=== PATIENT | male | born 1960 | race African-American/Black ===

== ENCOUNTER 2016-12-04 06:13 | Emergency (ER) | payer OTHER ==
[~2016-12-04] VITALS: Ht 177.8 cm; Wt 72.6 kg
[2016-12-04 06:56] LABS: BASOPHILS % (AUTO) 0.6 % (0.0-2.0); DIFF TOTAL % 100 %; EOSINOPHILS # (AUTO) 0.2 /CMM (0.0-0.7); EOSINOPHILS % (AUTO) 3.1 % (0.0-6.0); HEMATOCRIT 41 % (39-51); HEMOGLOBIN 13.5 g/dL (13.5-17.5); LYMPHOCYTES # (AUTO) 1.1 /CMM (0.8-4.8); LYMPHOCYTES % (AUTO) 22.6 % (20.0-44.0); MEAN CORPUSCULAR HEMOGLOBIN 27 PG (26.0-33.0); MEAN CORPUSCULAR HGB CONC 33 g/dl (31.0-36.0); MEAN CORPUSCULAR VOLUME 82 fL (80-96); MONOCYTES # (AUTO) 0.5 /CMM (0.1-1.30); NEUTROPHILS # (AUTO) 3.2 /CMM (1.8-8.9); NEUTROPHILS % (AUTO) 63.7 % (43.0-81.0); PLATELET COUNT (AUTO) 222 /CMM (150-450); RED BLOOD CELL COUNT(AUTO) 5.02 MIL/uL (4.5-6.0); WHITE BLOOD COUNT (AUTO) 5.1 K/uL (4.3-11.0)
[2016-12-04 07:03] LABS: ANION GAP 16 (5-14); CALCIUM, SERUM 8.8 mg/dL (8.5-10.1); CARBON DIOXIDE 25 mmol/L (21-32); CHLORIDE 107 mmol/L (98-107); GFR 94 mL/min (>60); GLUCOSE 84 mg/dL (74-106); POTASSIUM 3.9 mmol/L (3.5-5.1); SODIUM SERUM 144 mmol/L (136-145); UREA NITROGEN, BLOOD 17 mg/dL (7-18)
[2016-12-04 07:09] LABS: ALANINE AMINOTRANSFERASE 55 U/L (12-78); ALBUMIN 3.8 g/dL (3.4-5.0); ASPARTATE AMINOTRANSFERASE 28 U/L (15-37); BILIRUBIN,DIRECT 0.1 mg/dL (0.0-0.2); BILIRUBIN,TOTAL 0.4 mg/dL (0.2-1.0); INDIRECT BILIRUBIN 0.3 mg/dL (0.0-1.1); SALICYLATE 3.6 mg/dL (2.8-20.0)
[2016-12-04 07:10] LABS: ACETAMINOPHEN 0 ug/ml (10-30)
[2016-12-04 07:11] LABS: PHENCYCLIDINE SCREEN,URINE NEGATIVE (NEGATIVE)
[2016-12-04 07:12] LABS: CANNABINOID, URINE POSITIVE (NEGATIVE)
[2016-12-04 07:17] LABS: KETONES,URINE NEGATIVE (NEGATIVE); LEUKOCYTE ESTERASE ,URINE NEGATIVE (NEGATIVE)
[2016-12-04 07:35] LABS: ADD UA MICROSCOPIC YES
[2016-12-04 07:39] LABS: RBC,URINE 0-2 /HPF (0-2); WBC,URINE 0-2 /HPF (0-3)
[2016-12-04 07:40] LABS: ADD URINE CULTURE NO
[2016-12-04 08:05] VITALS: BP 135/78
== END 2016-12-04 08:06 | disposition home or self-care (01) ==
LOC: ER 06:13
DX: F32.9 Major depressive disorder, single episode, unspecified (principal)
CPT/HCPCS: 36415; 80048-TC; 80076-TC; 80305; 81000-TC; 85025-TC; A4606; G6038-TC; G6039-TC; G6040-TC; Z7610

== ENCOUNTER 2016-12-04 08:25 | Emergency (ER) | payer OTHER ==
[~2016-12-04] VITALS: Ht 177.8 cm; Wt 74.8 kg
[2016-12-04 11:26] VITALS: BP 131/59
== END 2016-12-04 14:37 ==
LOC: ER 08:26
DX: R45.851 Suicidal ideations (principal)
CPT/HCPCS: A4606; Z7610

== ENCOUNTER 2017-01-01 01:26 | Emergency (ER) | payer OTHER ==
[~2017-01-01] VITALS: Ht 177.8 cm; Wt 82.6 kg
[2017-01-01 01:46] LABS: BASOPHILS % (AUTO) 0.8 % (0.0-2.0); DIFF TOTAL % 100 %; EOSINOPHILS # (AUTO) 0.2 /CMM (0.0-0.7); EOSINOPHILS % (AUTO) 4.6 % (0.0-6.0); HEMATOCRIT 39 % (39-51); HEMOGLOBIN 13.1 g/dL (13.5-17.5); LYMPHOCYTES # (AUTO) 0.5 /CMM (0.8-4.8); LYMPHOCYTES % (AUTO) 11.2 % (20.0-44.0); MEAN CORPUSCULAR HEMOGLOBIN 27 PG (26.0-33.0); MEAN CORPUSCULAR HGB CONC 33 g/dl (31.0-36.0); MEAN CORPUSCULAR VOLUME 82 fL (80-96); MONOCYTES # (AUTO) 0.6 /CMM (0.1-1.30); MONOCYTES % (AUTO) 12.6 % (2.0-12.0); NEUTROPHILS # (AUTO) 3.2 /CMM (1.8-8.9); NEUTROPHILS % (AUTO) 70.8 % (43.0-81.0); PLATELET COUNT (AUTO) 201 /CMM (150-450); RED BLOOD CELL COUNT(AUTO) 4.77 MIL/uL (4.5-6.0); WHITE BLOOD COUNT (AUTO) 4.6 K/uL (4.3-11.0)
[2017-01-01 02:01] LABS: ACETAMINOPHEN 0 ug/ml (10-30); ALANINE AMINOTRANSFERASE 30 U/L (12-78); ALBUMIN 3.6 g/dL (3.4-5.0); ANION GAP 12 (5-14); ASPARTATE AMINOTRANSFERASE 12 U/L (15-37); BILIRUBIN,DIRECT 0.1 mg/dL (0.0-0.2); BILIRUBIN,TOTAL 0.5 mg/dL (0.2-1.0); CALCIUM, SERUM 8.7 mg/dL (8.5-10.1); CARBON DIOXIDE 26 mmol/L (21-32); CHLORIDE 104 mmol/L (98-107); CREATININE 1.1 mg/dL (0.6-1.3); GFR 84 mL/min (>60); GLUCOSE 90 mg/dL (74-106); INDIRECT BILIRUBIN 0.4 mg/dL (0.0-1.1); POTASSIUM 3.6 mmol/L (3.5-5.1); SALICYLATE 2.4 mg/dL (2.8-20.0); SODIUM SERUM 139 mmol/L (136-145); TOTAL PROTEIN, SERUM 7.4 g/dL (6.4-8.2); UREA NITROGEN, BLOOD 10 mg/dL (7-18)
[2017-01-01 02:23] LABS: KETONES,URINE NEGATIVE (NEGATIVE); LEUKOCYTE ESTERASE ,URINE 1+ (NEGATIVE)
[2017-01-01 02:24] LABS: ADD UA MICROSCOPIC YES
[2017-01-01 02:29] LABS: ADD URINE CULTURE YES; RBC,URINE NONE SEEN /HPF (0-2)
[2017-01-01 02:30] LABS: PHENCYCLIDINE SCREEN,URINE NEGATIVE (NEGATIVE)
[2017-01-01 02:52] LABS: CANNABINOID, URINE POSITIVE (NEGATIVE)
[2017-01-01 05:20] VITALS: BP 137/76
== END 2017-01-01 05:22 ==
LOC: ER 01:27
DX: R45.851 Suicidal ideations (principal); F32.9 Major depressive disorder, single episode, unspecified; G62.9 Polyneuropathy, unspecified; R82.99 Other abnormal findings in urine
CPT/HCPCS: 36415; 80048; 80076; 80305; 80329; 81001; 85025; 87086; 99285; A4606; G0480 ×2; Z7610; 81000-TC; G6039-TC

== ENCOUNTER 2020-11-20 19:00 | Emergency (ER) | payer OTHER ==
[~2020-11-20] VITALS: Ht 177.8 cm; Wt 81.6 kg
--- NOTE | 2020-11-20 22:31 | NUR ---
BIBSELF C/O SUICIDAL IDEATION WITH PLAN TO RUN INTO TRAFFIC. PT AAOX4. CALM AND COOPERATIVE. RESPIRATIONS EVEN AND UNLABORED. AMBULATORY WITH STEADY GAIT. NO ACUTE DISTRESS NOTED AT THIS TIME. PENDING MD GARCIA
--- NOTE | 2020-11-20 22:40 | NUR ---
MEN'S DESIGNER AT BEDSIDE FOR BLOOD WORK.
--- NOTE | 2020-11-20 22:40 | NUR ---
MANDIID SWABBED, SENT TO LAB.
--- NOTE | 2020-11-20 22:40 | NUR ---
AWITING FOR PT TO PROVIDE URINE SAMPLE
[2020-11-20 22:43] LABS: HEMOGLOBIN 12.6 g/dL (13.5-17.5)
[2020-11-20 22:47] LABS: BASOPHILS % (AUTO) 0.6 % (0.0-2.0); EOSINOPHILS % (AUTO) 5.3 % (0.0-6.0); HEMATOCRIT 38 % (39-51); LYMPHOCYTES # (AUTO) 0.9 /CMM (0.8-4.8); LYMPHOCYTES % (AUTO) 23.5 % (20.0-44.0); MEAN CORPUSCULAR HGB CONC 33 g/dl (31.0-36.0); MEAN CORPUSCULAR VOLUME 84 fL (80-96); MONOCYTES # (AUTO) 0.5 /CMM (0.1-1.30); MONOCYTES % (AUTO) 12.2 % (2.0-12.0); NEUTROPHILS # (AUTO) 2.4 /CMM (1.8-8.9); NEUTROPHILS % (AUTO) 58.4 % (43.0-81.0); PLATELET COUNT (AUTO) 262 /CMM (150-450); RED BLOOD CELL COUNT(AUTO) 4.56 MIL/uL (4.5-6.0)
[2020-11-20 22:54] LABS: CALCIUM, SERUM 8.7 mg/dL (8.5-10.1); CREATININE 1.1 mg/dL (0.6-1.3); POTASSIUM 3.9 mmol/L (3.5-5.1)
[2020-11-20 22:58] LABS: ALBUMIN 3.1 g/dL (3.4-5.0); BILIRUBIN,DIRECT 0.1 mg/dL (0.0-0.2); BILIRUBIN,TOTAL 0.2 mg/dL (0.2-1.0); TOTAL PROTEIN, SERUM 7.1 g/dL (6.4-8.2)
[2020-11-20 23:09] LABS: BILIRUBIN,URINE Negative (NEGATIVE); COLOR,URINE YELLOW (YELLOW); LEUKOCYTE ESTERASE ,URINE Negative (NEGATIVE); NITRITE, URINE Negative (NEGATIVE); PH,URINE 6.5 (5.0-8.0); PROTEIN,URINE Negative (NEGATIVE); UGLUCOSE Negative (NEGATIVE)
[2020-11-20 23:23] LABS: BACTERIA,URINE Few /HPF (None Seen); SQUAMOUS EPITHELIAL CELL,UR Few /HPF (None Seen); WBC,URINE 0-2 /HPF (0-3)
--- NOTE | 2020-11-20 23:38 | NUR ---
facesheet and clinicals faxed to [facility].
--- NOTE | 2020-11-20 23:52 | NUR ---
Call from lab. Rapid covid negative.
--- NOTE | 2020-11-21 03:17 | NUR ---
TRANSFER INFORMATION: PT ACCEPTED TO [facility] ACCEPTING MD: DR. ANAND UNIT 2
--- NOTE | 2020-11-21 03:25 | NUR ---
[facility] CALL THE CAR CALLED FOR TRANSPORT. TRIP# [phone]
--- NOTE | 2020-11-21 04:14 | NUR ---
[facility] eta [id number]
--- NOTE | 2020-11-21 04:48 | NUR ---
REPORT GIVEN TO ASIA WESTFALL FROM [facility] FOR ARNALDO
--- NOTE | 2020-11-21 07:33 | NUR ---
REPORT GIVEN TO LOGAN OF UNIT 710 [facility] FOR PT TRANSFER TO [facility]
[2020-11-21 08:22] VITALS: BP 128/71
--- NOTE | 2020-11-21 08:22 | NUR ---
Patient picked up by private ambulance in no distress going to [facility].
== END 2020-11-21 08:22 ==
LOC: ER 19:02
DX: R45.851 Suicidal ideations (principal); F32.9 Major depressive disorder, single episode, unspecified; Z59.0 Homelessness; G62.9 Polyneuropathy, unspecified; Z82.49 Family history of ischemic heart disease and other diseases of the circulatory system; F15.90 Other stimulant use, unspecified, uncomplicated; Z20.822 Contact with and (suspected) exposure to COVID-19
CPT/HCPCS: 36415 ×2; 71045; 80048; 80076; 80299; 80307; 80320; 81001; 84484 ×2; 85025; 87426; 93005; 99285; C9803; G0480

== ENCOUNTER 2021-02-20 09:47 | Inpatient (IN) | payer OTHER ==
[~2021-02-20] VITALS: Ht 177.8 cm; Wt 81.6 kg
[2021-02-20] MEDS ORDERED: NITROGLYCERIN 0.4 MG/TAB BOTTLE ONE ×2 (09:56→13:21)
[2021-02-20] MEDS ORDERED: ASPIRIN 325 MG TABLET PO ONE (10:00)
[2021-02-20] MEDS ORDERED: NITROGLYCERIN 0.4 MG/TAB BOTTLE SL ONE ×2 (10:00→13:30)
--- NOTE | 2021-02-20 10:09 | NUR ---
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 On room air, breathing evenly and unlabored, connected to the monitor and pulse ox. kept comfortable, will continue to monitor accordingly.
[2021-02-20 10:16] LABS: EOSINOPHILS % (AUTO) 13.8 % (0.0-6.0); HEMATOCRIT 40 % (39-51); HEMOGLOBIN 13.6 g/dL (13.5-17.5); LYMPHOCYTES % (AUTO) 24.9 % (20.0-44.0); MEAN CORPUSCULAR HGB CONC 34 g/dl (31.0-36.0); MEAN CORPUSCULAR VOLUME 84 fL (80-96); MONOCYTES # (AUTO) 0.4 /CMM (0.1-1.30); MONOCYTES % (AUTO) 10.6 % (2.0-12.0); NEUTROPHILS # (AUTO) 2.1 /CMM (1.8-8.9); NEUTROPHILS % (AUTO) 49.7 % (43.0-81.0); PLATELET COUNT (AUTO) 182 /CMM (150-450); RED BLOOD CELL COUNT(AUTO) 4.81 MIL/uL (4.5-6.0); WHITE BLOOD COUNT (AUTO) 4.2 K/uL (4.3-11.0)
[2021-02-20] MEDS ORDERED: OLAN20TA3 PO (10:31)
[2021-02-20] MEDS ORDERED: RISP0.2515 PO (10:31)
[2021-02-20] MEDS ORDERED: TAMS-12 PO (10:31)
[2021-02-20] MEDS ORDERED: BUPR-319 PO (10:31)
[2021-02-20] MEDS ORDERED: TRAZ-182 PO (10:31)
[2021-02-20] MEDS ORDERED: BUPR300T52 PO (10:31)
[2021-02-20] MEDS ORDERED: NITR100C PO (10:31)
[2021-02-20] MEDS ORDERED: IBUP-1953 PO (10:32)
[2021-02-20 10:36] LABS: CARBON DIOXIDE 28 mmol/L (21-32); CHLORIDE 104 mmol/L (98-107); GLUCOSE 95 mg/dL (74-106); POTASSIUM 4.4 mmol/L (3.5-5.1); SODIUM SERUM 137 mmol/L (136-145); UREA NITROGEN, BLOOD 22 mg/dL (7-18)
[2021-02-20 10:49] LABS: B-TYPE NATRIURETIC PEPTIDE 92 PG/ML (0-125)
--- NOTE | 2021-02-20 11:00 | NUR ---
Pt assigned to telemetry room 119
[2021-02-20] MEDS ORDERED: MORPHINE SULFATE INJ 2 MG/ML DISP.SYRIN IV PRN (11:30)
[2021-02-20] MEDS ORDERED: IBUPROFEN 400 MG TABLET PO PRN (11:30)
[2021-02-20] MEDS ORDERED: Z GUARD REMEDY 2 OZ OINT TP PRN (11:30)
[2021-02-20] MEDS ORDERED: MAGNESIUM HYDROXIDE 30 ML UDC PO PRN (11:30)
[2021-02-20] MEDS ORDERED: ZOLPIDEM TARTRATE 5 MG TABLET PO PRN (11:30)
[2021-02-20] MEDS ORDERED: ONDANSETRON HCL/PF 4 MG/2 ML VIAL IVP PRN (11:30)
[2021-02-20] MEDS ORDERED: ACETAMINOPHEN 325 MG TABLET PO PRN (11:30)
[2021-02-20] MEDS ORDERED: MAG HYDROX/AL HYDROX/SIMETH 30 ML UDC PO PRN (11:30)
[2021-02-20] MEDS: ENOXAPARIN SODIUM 40 MG/0.4 ML DISP.SYRIN SQ SCH ×2 (11:30→14:41)
[2021-02-20] MEDS: NICOTINE PATCH (21MG) 21 MG PATCH.TD24 TD SCH ×2 (11:30→14:39)
[2021-02-20] MEDS ORDERED: HYDROCODONE/APAP 5/325MG TABLET PO PRN (11:30)
--- NOTE | 2021-02-20 11:41 | NUR ---
report given to Marybeth BETANCOURT for manuel
[2021-02-20 12:45] VITALS: BP 124/76
--- NOTE | 2021-02-20 12:45 | NUR ---
VENEER GLUE JOINTER FEEDBACK NOTES RECEIVED PT FROM ER VIA [facility], ADMITTED FOR CHEST PAIN POSSIBLE CAD BY DR. CLARISA EDWARDS, ALERT AWAKE ORIENTED X 4, ON ROOM AIR, NOT IN ANY DISTRESS, RESPIRATION UNLABORED, SINUS RHYTHM ON MONITOR, DENIES CHEST PAIN OR ANY DISCOMFORT, IV ACCESS TO RIGHT AC G 20 FLUSHES WELL, SITE CLEAR. UNIT ORIENTATION DONE AND USED OF CALL LIGHT. VERBALIZED UNDERSTANDING. ON CARDIAC DIET. AMBULATES WITH ASSIST. SAFETY MEASURES IN PLACE, BED LOW, LOCKED, CALL LIGHT WITHIN REACH. WILL CONTINUE TO MONITOR.
[2021-02-20] MEDS ORDERED: IOHEXOL-350 100 ML VIAL IV ONE ×2 (13:21→13:53)
[2021-02-20] MEDS ORDERED: IV NS 0.9% 250 ML IV ONE (13:21)
[2021-02-20] MEDS ORDERED: METOPROLOL TARTRATE INJ 5 MG/5 ML AMPUL ONE (13:21)
[2021-02-20] MEDS ORDERED: CT SWABBABLE VALVE TRANS SET 1 EA INFUS.SET MC ONE (13:21)
--- NOTE | 2021-02-20 13:22 | NUR ---
wheeled patient via gurney accompanied by RN and emt in no distress. RN at bedside to assume care.
[2021-02-20] MEDS ORDERED: IV NS 0.9% 500 ML IV PRN (13:30)
[2021-02-20] MEDS ORDERED: METOPROLOL TARTRATE INJ 5 MG/5 ML AMPUL IVP PRN (13:30)
--- NOTE | 2021-02-20 14:02 | NUR ---
RN NOTES: Post CTA:patient able to tolerate the procedure no distress noted at this time. Transferred back to patient room.
[2021-02-20] MEDS: PANTOPRAZOLE 40 MG TABLET.DR PO SCH (14:39)
[2021-02-20 16:00] VITALS: BP 149/64
[2021-02-20] MEDS: risperiDONE 1 MG TABLET PO SCH (16:54)
--- NOTE | 2021-02-20 18:54 | NUR ---
RN NOTES ALL NEEDS MET. PATIENT RESTING. NOT IN ANY DISTRESS. NO OTHER SIGNIFICANT CHANGE IN CONDITION NOTED. WILL ENDORSE TO NEXT SHIFT FOR ARNALDO.
--- NOTE | 2021-02-20 19:31 | NUR ---
RN OPENING NOTES: Rec'd pt in bed A&Ox4. On room air O2 WNL. No resp distress noted at this time. SR on tele monitor. RAC #20 patent and flushed. Dressing c/d/i. Safety measures in place. Will continue to monitor.
[2021-02-20 20:00] VITALS: BP_SYST 122; BP_SYST 172; BP_DIAS 77
--- NOTE | 2021-02-20 20:26 | NUR ---
RN NOTE: 2009: Pt refused 2000 troponin lab draw. Attempted to talk to pt about importance of lab and pt started screaming "get out of my face!" repeatedly. Charge nurse aware. 2015: Paged Epic to update waste elimination MD. Awaiting call back. Addendum: 02/20/21 at 2036 by NORMA PINEDO RN 2035: Rec'd call from Dr. Thomson, updated on refusal. NNO at this time.
[2021-02-20] MEDS ORDERED: TRAZODONE 50 MG TABLET PO SCH (22:00)
[2021-02-20] MEDS ORDERED: OLANZAPINE 5 MG TABLET PO SCH (22:00)
[2021-02-21] VITALS: BP 115/73
[2021-02-21 04:00] VITALS: BP 13/61
--- NOTE | 2021-02-21 05:48 | NUR ---
RN NOTE: Pt refused am labs. Educated pt on importance of the labs that need to be drawn. Continued refusal. Will attempt again later. Research And Development Scientist aware to come back at later time.
[2021-02-21] MEDS: PANTOPRAZOLE 40 MG TABLET.DR PO SCH (07:30)
[2021-02-21 08:00] VITALS: BP 126/82
[2021-02-21] MEDS: NICOTINE PATCH (21MG) 21 MG PATCH.TD24 TD SCH (09:00)
[2021-02-21] MEDS: ENOXAPARIN SODIUM 40 MG/0.4 ML DISP.SYRIN SQ SCH (09:00)
[2021-02-21] MEDS ORDERED: TAMSULOSIN 0.4 MG CAP.SR.24H PO SCH (09:00)
[2021-02-21] MEDS ORDERED: BUPROPION XL 150 MG TAB.ER.24 PO SCH (09:00)
[2021-02-21] MEDS ORDERED: ASPIRIN 81 MG TAB.CHEW PO SCH (09:00)
[2021-02-21] MEDS: risperiDONE 1 MG TABLET PO SCH ×3 (09:40→17:00)
[2021-02-21 12:00] VITALS: BP 145/76
[2021-02-21] MEDS ORDERED: NICO-762 TD (13:04)
[2021-02-21] MEDS ORDERED: ASPI-1169 PO (13:04)
--- NOTE | 2021-02-21 13:49 | NUR ---
telephonic case manager notified regarding discharge to [facility].
--- NOTE | 2021-02-21 13:58 | NUR ---
per cm director of social work will do discharge,director of social work spoke with patient via phone.awaits instruction from director of social work.
--- NOTE | 2021-02-21 14:05 | NUR ---
Discharge Planning: ANA informed by Historiography Teacher that pt. would like to be discharged back to [facility] [[facility] [place] [address] ] to continue inpatient psychiatric treatment. ANA faxed clinicals to [facility] and spoke with Henri. Per Henri, Drug Screen report is needed. ANA called [facility] and requested drug screen. ANA will fax toxicology report when available. Per Henri, he will hold a bed for pt. pending toxicology report.
[2021-02-21 14:38] LABS: BASOPHILS # (AUTO) 0.1 /CMM (0.0-0.2); EOSINOPHILS % (AUTO) 12.2 % (0.0-6.0); HEMATOCRIT 44 % (39-51); HEMOGLOBIN 14.4 g/dL (13.5-17.5); LYMPHOCYTES # (AUTO) 1.2 /CMM (0.8-4.8); LYMPHOCYTES % (AUTO) 28.6 % (20.0-44.0); MEAN CORPUSCULAR HGB CONC 33 g/dl (31.0-36.0); MEAN CORPUSCULAR VOLUME 83 fL (80-96); MONOCYTES # (AUTO) 0.5 /CMM (0.1-1.30); MONOCYTES % (AUTO) 12.4 % (2.0-12.0); NEUTROPHILS # (AUTO) 1.8 /CMM (1.8-8.9); NEUTROPHILS % (AUTO) 44.8 % (43.0-81.0); PLATELET COUNT (AUTO) 192 /CMM (150-450); RED BLOOD CELL COUNT(AUTO) 5.25 MIL/uL (4.5-6.0); WHITE BLOOD COUNT (AUTO) 4.1 K/uL (4.3-11.0)
[2021-02-21 14:49] LABS: CREATININE 1.1 mg/dL (0.6-1.3); MAGNESIUM 2.2 mg/dL (1.8-2.4); PHOSPHORUS 3.8 mg/dL (2.5-4.9); POTASSIUM 4.1 mmol/L (3.5-5.1)
--- NOTE | 2021-02-21 15:00 | NUR ---
social work coordinator notified drug screen result in .awaits bed from [facility].
[2021-02-21 15:03] LABS: THYROID STIMULATING HORMONE 0.81 uIU/mL (0.358-3.74)
[2021-02-21 16:06] LABS: BILIRUBIN,URINE NEGATIVE (NEGATIVE); COLOR,URINE YELLOW (YELLOW); LEUKOCYTE ESTERASE ,URINE NEGATIVE (NEGATIVE); NITRITE, URINE NEGATIVE (NEGATIVE); PH,URINE 5.5 (5.0-8.0); PROTEIN,URINE NEGATIVE (NEGATIVE); UGLUCOSE NEGATIVE (NEGATIVE); UROBILINOGEN,URINE 0.2 EU/dL (0.2)
--- NOTE | 2021-02-21 16:15 | NUR ---
RN NOTE PT REFUSED VITAL SIGNS
--- NOTE | 2021-02-21 18:10 | NUR ---
RN NOTE PT DISCHARGED TO [facility] IN STABLE CONDITION. PT REPORT GIVEN TO ASIA WESTFALL.
== END 2021-02-21 18:30 | DRG 203 ==
LOC: ER 09:52 → TELE1 12:46 → MEDSG1 02-21 11:17
PROVIDERS: ADMIT Nurse Practitioner Acute Care; ATTEND Registered Nurse
DX: M94.0 Chondrocostal junction syndrome [Tietze] (principal); F20.9 Schizophrenia, unspecified; G62.9 Polyneuropathy, unspecified; F15.10 Other stimulant abuse, uncomplicated; I10 Essential (primary) hypertension; Z20.822 Contact with and (suspected) exposure to COVID-19; Z59.0 Homelessness; N40.0 Benign prostatic hyperplasia without lower urinary tract symptoms; F32.9 Major depressive disorder, single episode, unspecified; F29 Unspecified psychosis not due to a substance or known physiological condition; Z79.899 Other long term (current) drug therapy; F17.200 Nicotine dependence, unspecified, uncomplicated; F12.929 Cannabis use, unspecified with intoxication, unspecified; N39.0 Urinary tract infection, site not specified
CPT/HCPCS: 36415; 71045-TC; 75574; 80048-TC; 80061-TC; 83735-TC; 83880; 84100-TC; 84443-TC; 84484-TC; 85025-TC; 87081-TC; 93307-TC; G0378; J1650; J3490; J7050; Q9967; U0003